=== PATIENT | female | born 1985 | race American Indian/Alaskan Native ===

== ENCOUNTER 2016-08-19 20:28 | Emergency (ER) | payer MEDICAID, OTHER ==
[2016-08-20] MEDS ORDERED: ULTRAM PO ONE (05:27)
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
[2016-08-20 05:58] VITALS: BP 117/80
== END 2016-08-20 06:13 | disposition home or self-care (01) ==
LOC: ED 20:28
DX: S39.012A Strain of muscle, fascia and tendon of lower back, initial encounter (principal); S16.1XXA Strain of muscle, fascia and tendon at neck level, initial encounter; V89.2XXA Person injured in unspecified motor-vehicle accident, traffic, initial encounter; Y93.89 Activity, other specified; Y92.89 Other specified places as the place of occurrence of the external cause; Y99.8 Other external cause status
CPT/HCPCS: 99282